=== PATIENT | male | born 1975 ===

== ENCOUNTER 2019-07-22 01:15 | Emergency (ER) | payer SELFPAY ==
[~2019-07-22] VITALS: Ht 177.8 cm; Wt 111.0 kg
--- NOTE | 2019-07-22 01:24 | NUR ---
PT NOT IN LOBBY WHEN CALLED FOR TRIAGE.
[2019-07-22 01:26] VITALS: BP 137/74
--- NOTE | 2019-07-22 01:43 | NUR ---
PT WAS CAUGHT BY SECURITY URINATING ON BUILDING AT ER ENTRANCE. PT ESCORTED OFF PROPERTY.
== END 2019-07-22 01:48 | disposition left against medical advice (07) ==
LOC: ED 01:37
DX: Z53.21 Procedure and treatment not carried out due to patient leaving prior to being seen by health care provider (principal)